=== PATIENT | female | born 1945 | race Two or more races ===

== ENCOUNTER 2016-11-08 13:46 | Emergency (ER) | payer MEDICARE ==
[~2016-11-08] VITALS: Ht 167.6 cm; Wt 85.0 kg
[2016-11-08 13:52] VITALS: BP 187/93
== END 2016-11-08 15:04 | disposition home or self-care (01) ==
LOC: ED 14:50
DX: H65.02 Acute serous otitis media, left ear (principal); E11.9 Type 2 diabetes mellitus without complications
CPT/HCPCS: 82962; 99283